=== PATIENT | female | born 2000 | race African-American/Black ===

== ENCOUNTER 2019-01-15 02:19 | Emergency (ER) | payer SELFPAY ==
[~2019-01-15] VITALS: Ht 160 cm; Wt 54.4 kg
--- OUTSIDE RECORDS SUMMARY | 2019-01-15 02:21 | XMS REPORT | Continuity of Care Document ---
Author Author [facility] Interface Address Unknown Phone Unavailable Problems Problem Status Onset Date Classification Date Reported Comments Source Cough 04/18/2018 11/05/2018 [facility] SOB Active 04/18/2018 [facility] Unspecified acute conjunctivitis, right eye 03/14/2018 09/26/2018 [facility] Acute conjunctivitis, right eye 03/09/2018 09/26/2018 [facility] EYE PAIN Active 03/09/2018 [facility] Discharge Diagnosis: Abdominal pain 07/19/2016 07/22/2016 [facility] ABDOMINAL PAIN/VOMITING Active 07/19/2016 [facility] Discharge Diagnosis: Acute nonsuppurative otitis media of left ear 07/04/2016 07/07/2016 [facility] LFT EAR PAIN Active 07/04/2016 [facility] Discharge Diagnosis: DUB 04/06/2016 04/09/2016 [facility] VAGINAL BLEEDING - Active 04/06/2016 [facility] Discharge Diagnosis: Acute asthma exacerbation 11/23/2014 11/25/2014 [facility] Asthma Resolved Problem 11/05/[address] [facility] Unspecified asthma, uncomplicated 11/05/2018 [facility] Medications Medication Details Route Status Patient Instructions Ordering Provider Order Date Source benzonatate 100 MG Oral Capsule [Tessalon Perles] 100 mg=1 cap, PO, TID, X 7 day, # 21 cap, 0 Refill(s) No Longer Active 04/18/2018 [facility] Polymyxin B 00515 UNT/ML / Trimethoprim 1 MG/ML Ophthalmic Solution [Polytrim] 1 drp, RIGHT EYE, Q4H, X 5 day, # 5 mL, 0 Refill(s) No Longer Active 03/09/2018 [facility] Ondansetron 4 MG Disintegrating Tablet [Zofran] 4 mg=1 tab, PO, BID, PRN Nausea and Vomiting, Dissolve tab under tongue, X 5 day, # 10 tab, 0 Refill(s) Active 07/19/2016 [facility] Saline Flush 0.9% 10 mL, Route: IVP, Drug Form: INJ, Dosing Weight 65.455, kg, PRN, PRN Line Flush, Start date: 07/19/16 11:15:00 [employer], Duration: 30 day, Stop date: 08/18/16 11:14:00 CSTNotes: Same as: BD Posiflush Sterile Inactive 07/19/2016 [facility] Ondansetron 4 mg, 2 mL, Route: IVP, Drug form: INJ, ONCE, Dosing Weight 65.455, kg, Priority: STAT, Start date: 07/19/16 11:15:00 [employer], Stop date: 07/19/16 11:15:00 CSTNotes: (Same as: Zofran) MEDICATION WASTE Product Size: 4 mg Product Wasted: ___ mg Inactive 07/19/2016 [facility] Sodium Chloride 0.154 MEQ/ML Injectable Solution 1,000 mL, 2,000 ml/hr, Infuse Over: 30 minutes, Route: IV, 1,000, Drug form: INJ, ONCE, Priority: STAT, Dosing Weight 65.455 kg, Start date: 07/19/16 11:15:00 [employer], Duration: 1 doses or times, Stop date: 07/19/16 11:15:00 [employer] Inactive 07/19/2016 [facility] Ketorolac 30 mg, 1 mL, Route: IVP, Drug form: INJ, ONCE, Dosing Weight 65.455, kg, Priority: STAT, Start date: 07/19/16 11:15:00 [employer], Stop date: 07/19/16 11:15:00 CSTNotes: (Same as:Toradol) IV bolus must be given >15 seconds. Give IM administration slowly and deeply into the muscle. Not for use > 4 days MEDICATION WASTE Product Size: 30 mg Product Wasted: ___ mg Inactive 07/19/2016 [facility] amoxicillin 875 mg oral tablet 875 mg=1 tab, PO, Q12H, X 10 day, # 20 tab, 0 Refill(s) Active 07/04/2016 [facility] Albuterol 0.83 MG/ML Inhalant Solution 2.49 mg=3 mL, INHALATION, Q6H, # 120 ea, 0 Refill(s) Active 11/23/2014 [facility] predniSONE 20 mg oral tablet 40 mg=2 tab, PO, Daily, Take 3 tablets for 60 mg dose, # 10 tab, 0 Refill(s)Special Instructions: Take 3 tablets for 60 mg dose Active 11/23/2014 [facility] albuterol CFC free 90 mcg/inh inhalation aerosol with adapter 2 puff, INHALATION, QID, PRN Wheezing, # 17 gm, 0 Refill(s) Active 11/23/2014 [facility] Prednisone 60 mg, Route: PO, Drug form: TAB, ONCE, Dosing Weight 59.091, kg, Priority: STAT, Start date: 11/23/14 7:33:00, Stop date: 11/23/14 7:33:00 Inactive 11/23/2014 [facility] Albuterol 0.833 MG/ML / Ipratropium Stendal 0.167 MG/ML Inhalant Solution 9 mL, Route: NEB, Dosing Weight 59.091, kg, ONCE, STAT, Start date: 11/23/14 7:31:00, Stop date: 11/23/14 7:31:00 Inactive 11/23/2014 [facility] Allergies, Adverse Reactions, Alerts Substance Category Reaction Severity Reaction type Status Date Reported Comments Source Immunizations Immunization Date Given Site Status Last Updated Comments Source Results Order Name Results Value Reference Range Date Interpretation Comments Source Chest 2 views DX Chest 2 views DX Patient Name: MADHU LIAO : 2000; Age: 17 years Female MR: [id number] Study: Chest 2 views DX Order Time: 04/18/2018 2:18 PM CDT CLINICAL INDICATION: - cough COMPARISON: Chest radiograph on 11/23/2014 FINDINGS: Lines: None. Lungs: The lungs are grossly clear. Mediastinum: The cardiac silhouette is within normal limits of size. Midline trachea. Bones and soft tissues: No acute abnormalities. IMPRESSION: No acute cardiopulmonary abnormalities. SL: [id number] 04/18/2018 - - Read by: Liss Kuhn MD Dictated Date/time: 04/18/18 14:34 Electronically Signed by: Liss Kuhn MD 04/18/18 14:34 FINAL REPORT [facility] CHEM PANEL Lipase Lvl 121 unit/L 73 - 393 07/19/2016 [facility] CHEM PANEL eGFR 112 mL/min/1.73m2 07/19/2016 Result Comment: The eGFR is calculated using the modified Cole equation 0.413 x Height (cm) /Serum Creatinine (mg/dL). [facility] CHEM PANEL Bili Total 0.2 mg/dL 0.2 - 1.3 07/19/2016 [facility] CHEM PANEL ALT 11 unit/L 0 - 65 07/19/2016 [facility] CHEM PANEL Alk Phos 60 unit/L 39 - 136 07/19/2016 [facility] CHEM PANEL AST 10 unit/L 0 - 37 07/19/2016 [facility] CHEM PANEL Albumin Lvl 3.5 g/dL 3.5 - 5.0 07/19/2016 [facility] CHEM PANEL Calcium Lvl 8.4 mg/dL 8.5 - 10.5 07/19/2016 [facility] CHEM PANEL Total Protein 7.6 g/dL 6.4 - 8.4 07/19/2016 [facility] CHEM PANEL CO2 26 meq/L 24 - 32 07/19/2016 [facility] CHEM PANEL Chloride Lvl 107 meq/L 95 - 109 07/19/2016 [facility] CHEM PANEL Potassium Lvl 4.3 meq/L 3.5 - 5.1 07/19/2016 [facility] CHEM PANEL Creatinine Lvl 0.61 mg/dL 0.50 - 1.40 07/19/2016 [facility] CHEM PANEL Sodium Lvl 140 meq/L 135 - 145 07/19/2016 [facility] CHEM PANEL Glucose Lvl 87 mg/dL 70 - 99 07/19/2016 [facility] CHEM PANEL BUN 8 mg/dL 7 - 22 07/19/2016 [facility] CHEM PANEL A/G Ratio 0.9 0.7 - 1.6 07/19/2016 [facility] CHEM PANEL Globulin 4.1 g/dL 2.7 - 4.2 07/19/2016 [facility] CHEM PANEL B/C Ratio 13 6 - 25 07/19/2016 [facility] CHEM PANEL AGAP 11.3 meq/L 10.0 - 20.0 07/19/2016 [facility] HEMATOLOGY MCHC 33.0 g/dL 32.0 - 36.0 07/19/2016 [facility] HEMATOLOGY MCH 26.4 pg 27.0 - 31.0 07/19/2016 [facility] HEMATOLOGY MCV 80.0 fL 80.0 - 98.0 07/19/2016 [facility] HEMATOLOGY MPV 8.7 fL 7.4 - 10.4 07/19/2016 [facility] HEMATOLOGY Platelet 317 K/CMM 133 - 450 07/19/2016 [facility] HEMATOLOGY Hgb 12.7 g/dL 12.0 - 16.0 07/19/2016 [facility] HEMATOLOGY RBC 4.83 M/CMM 4.20 - 5.40 07/19/2016 [facility] HEMATOLOGY WBC 8.5 K/CMM 3.7 - 10.4 07/19/2016 [facility] HEMATOLOGY RDW 13.3 % 11.5 - 14.5 07/19/2016 [facility] HEMATOLOGY Hct 38.6 % 36.0 - 48.0 07/19/2016 [facility] HEMATOLOGY Basophils # 0.1 K/CMM 0.0 - 0.2 07/19/2016 [facility] HEMATOLOGY Eosinophils # 0.1 K/CMM 0.0 - 0.5 07/19/2016 [facility] HEMATOLOGY Monocytes # 0.8 K/CMM 0.0 - 0.8 07/19/2016 [facility] HEMATOLOGY Lymphocytes # 1.9 K/CMM 1.0 - 5.5 07/19/2016 [facility] HEMATOLOGY Basophils 0.7 % 0.0 - 1.0 07/19/2016 [facility] HEMATOLOGY Segs-Bands # 5.6 K/CMM 1.5 - 8.1 07/19/2016 [facility] HEMATOLOGY Lymphocytes 22.5 % 20.0 - 40.0 07/19/2016 [facility] HEMATOLOGY Monocytes 9.4 % 2.0 - 12.0 07/19/2016 [facility] HEMATOLOGY Eosinophils 1.2 % 0.0 - 4.0 07/19/2016 [facility] HEMATOLOGY Segs 66.2 % 45.0 - 75.0 07/19/2016 [facility] URINE AND STOOL UA Mucus Few /LPF None Seen /LPF 07/19/2016 [facility] URINE AND STOOL UA Bacteria Few /HPF None Seen /HPF 07/19/2016 [facility] URINE AND STOOL UA WBC 0-2 /HPF None Seen /HPF 07/19/2016 [facility] URINE AND STOOL UA RBC 6-10 /HPF 0 - 2 07/19/2016 [facility] URINE AND STOOL UA Spec Grav >=1.030 *ABN* (07/19/16 11:33 AM) <=1.030 07/19/2016 [facility] URINE AND STOOL UA Protein Negative (07/19/16 11:33 AM) Negative 07/19/2016 [facility] URINE AND STOOL UA Color Yellow *NA* (07/19/16 11:33 AM) Yellow 07/19/2016 [facility] URINE AND STOOL UA Turbidity Clear (07/19/16 11:33 AM) Clear 07/19/2016 [facility] URINE AND STOOL UA Leuk Est Negative (07/19/16 11:33 AM) Negative 07/19/2016 [facility] URINE AND STOOL UA Sq Epi Few /LPF Few /LPF 07/19/2016 [facility] URINE AND STOOL UA Nitrite Negative (07/19/16 11:33 AM) Negative 07/19/2016 [facility] URINE AND STOOL UA Ketones Negative *NA* (07/19/16 11:33 AM) Negative 07/19/2016 [facility] URINE AND STOOL UA pH 5.5 5.0 - 8.0 07/19/2016 [facility] URINE AND STOOL UA Glucose Negative (07/19/16 11:33 AM) Negative 07/19/2016 [facility] URINE AND STOOL UA Blood Large *ABN* (07/19/16 11:33 AM) Negative 07/19/2016 [facility] URINE AND STOOL UA Urobilinogen 0.2 EU/dL 0.1 - 1.0 07/19/2016 [facility] URINE AND STOOL UA Bili Negative *NA* (07/19/16 11:33 AM) Negative 07/19/2016 [facility] URINE CHEM U Preg Negative (07/19/16 11:33 AM) Negative 07/19/2016 [facility] URINE CHEM U Preg Negative (04/06/16 8:07 PM) Negative 04/07/2016 [facility] Vital Signs Vital Sign Value Date Comments Source Respitory Rate 15 04/18/2018 [facility] Systolic (mm Hg) 106 04/18/2018 [facility] Diastolic (mm Hg) 68 04/18/2018 [facility] Temperature Oral (F) 99.2 F 04/18/2018 [facility] Heart Rate 59 04/18/2018 [facility] Weight 57.636 04/18/2018 [facility] Systolic (mm Hg) 114 04/18/2018 [facility] Diastolic (mm Hg) 61 04/18/2018 [facility] Temperature Oral (F) 99.0 F 04/18/2018 [facility] Heart Rate 84 04/18/2018 [facility] Respitory Rate 20 04/18/2018 [facility] Heart Rate 63 03/09/2018 [facility] Systolic (mm Hg) 127 03/09/2018 [facility] Diastolic (mm Hg) 77 03/09/2018 [facility] Height 157.48 cm 03/09/2018 [facility] Temperature Oral (F) 98.2 F 03/09/2018 [facility] Respitory Rate 18 03/09/2018 [facility] Weight 59.205 03/09/2018 [facility] BMI Calculated 23.87 03/09/2018 [facility] Heart Rate 87 07/19/2016 [facility] Systolic (mm Hg) 115 07/19/2016 [facility] Diastolic (mm Hg) 78 07/19/2016 [facility] Respitory Rate 18 07/19/2016 [facility] Temperature Oral (F) 98.6 F 07/19/2016 [facility] Temperature Oral (F) 98.6 F 07/19/2016 [facility] Height 165.1 cm 07/19/2016 [facility] Weight 65.455 07/19/2016 [facility] BMI Calculated 24.01 07/19/2016 [facility] Respitory Rate 18 07/19/2016 [facility] Heart Rate 86 07/19/2016 [facility] Systolic (mm Hg) 109 07/19/2016 [facility] Diastolic (mm Hg) 74 07/19/2016 [facility] Weight 63.636 07/04/2016 [facility] Heart Rate 89 07/04/2016 [facility] Systolic (mm Hg) 119 07/04/2016 [facility] Diastolic (mm Hg) 75 07/04/2016 [facility] Respitory Rate 16 07/04/2016 [facility] Temperature Oral (F) 98.5 F 07/04/2016 [facility] BMI Calculated 26.51 07/04/2016 [facility] Height 154.94 cm 07/04/2016 [facility] Temperature Oral (F) 98.4 F 04/07/2016 [facility] Systolic (mm Hg) 108 04/07/2016 [facility] Diastolic (mm Hg) 71 04/07/2016 [facility] Respitory Rate 20 04/07/2016 [facility] Heart Rate 87 04/07/2016 [facility] Weight 62.273 04/07/2016 [facility] BMI Calculated 24.32 04/07/2016 [facility] Height 160.02 cm 04/07/2016 [facility] Temperature Oral (F) 98.7 F 04/07/2016 [facility] Respitory Rate 18 04/07/2016 [facility] Heart Rate 75 04/07/2016 [facility] Systolic (mm Hg) 123 04/07/2016 [facility] Diastolic (mm Hg) 74 04/07/2016 [facility] Heart Rate 76 11/23/2014 [facility] Temperature Oral (F) 98.1 F 11/23/2014 [facility] Systolic (mm Hg) 101 11/23/2014 [facility] Diastolic (mm Hg) 50 11/23/2014 [facility] Respitory Rate 20 11/23/2014 [facility] Weight 59.091 11/23/2014 [facility] Respitory Rate 22 11/23/2014 [facility] Heart Rate 96 11/23/2014 [facility] Systolic (mm Hg) 117 11/23/2014 [facility] Diastolic (mm Hg) 77 11/23/2014 [facility] Temperature Oral (F) 98.5 F 11/23/2014 [facility] Encounters Location Location Details Encounter Type Encounter Number Reason For Visit Attending Provider ADM Date DC Date Status Source [facility] [id number] Loi Acosta 11/23/2014 11/23/2014 [facility] [id number] Pa Woods 04/07/2016 04/07/2016 [facility] [id number] Marino Padgett 07/04/2016 07/04/2016 [facility] [id number] Andrew Farias 07/19/2016 07/19/2016 [facility] [id number] Laron Quijano 03/09/2018 03/09/2018 [facility] [id number] Bebe Ludwig 04/18/2018 04/18/2018 [facility] Procedures Procedure Code Date Perfomer Comments Source
--- OUTSIDE RECORDS SUMMARY | 2019-01-15 02:22 | XMS REPORT | Summary of Care ---
Author Author [facility] Organization [facility] Address Unknown Phone Unavailable Encounter RICHI Alvarez(ANITA) [id number] Date(s): 07/19/16 - 07/19/16 [facility] [address] [place] [address]- [phone] Discharge Diagnosis: Abdominal pain Discharge Disposition: Home or Self Care Attending Physician: Andrew Farias MD Vital Signs Most recent to 1 2 oldest [Reference Range]: Height 165.1 cm (07/19/16 10:40 AM) Temperature Oral 98.6 DegF 98.6 DegF [96.8-99.7 DegF] (07/19/16 1:43 PM) (07/19/16 10:40 AM) Blood Pressure 115/78 mmHg 109/74 mmHg [90-138/45-84 mmHg] (07/19/16 1:43 PM) (07/19/16 10:40 AM) Respiratory Rate 18 BRMIN 18 BRMIN [14-20 BRMIN] (07/19/16 1:43 PM) (07/19/16 10:40 AM) Peripheral Pulse 87 bpm 86 bpm Rate [55-90 bpm] (07/19/16 1:43 PM) (07/19/16 10:40 AM) Weight 65.455 kg (07/19/16 10:40 AM) Body Mass Index 24.01 m2 (07/19/16 10:40 AM) Problem List Condition Effective Dates Status Health Status Informant Asthma(Confirmed) Resolved Allergies, Adverse Reactions, Alerts Substance Reaction Severity Status NKDA Active Medications ketOROLAC 30 mg, 1 mL, Route: IVP, Drug form: INJ, ONCE, Dosing Weight 65.455, kg, Priorit y: STAT, Start date: 07/19/16 11:15:00 [employer], Stop date: 07/19/16 11:15:00 [employer] Notes: (Same as:Toradol) IV bolus must be given >15 seconds. Give IM administration slowly and deeply into the muscle.Not for use > 4 days MEDICATION WASTE Product Size: 30 mgProduct Wasted: ___ mg Start Date: 07/19/16 Stop Date: 07/19/16 Status: Completed ondansetron 4 mg, 2 mL, Route: IVP, Drug form: INJ, ONCE, Dosing Weight 65.455, kg, Priority : STAT, Start date: 07/19/16 11:15:00 [employer], Stop date: 07/19/16 11:15:00 [employer] Notes: (Same as: Zofran) MEDICATION WASTE Product Size: 4 mgProduct Was little: ___ mg Start Date: 07/19/16 Stop Date: 07/19/16 Status: Completed Saline Flush 0.9% 10 mL, Route: IVP, Drug Form: INJ, Dosing Weight 65.455, kg, PRN, PRN Line Flush , Start date: 07/19/16 11:15:00 [employer], Duration: 30 day, Stop date: 08/18/16 11:14 :00 [employer] Notes: Same as: BD Posiflush Sterile Start Date: 07/19/16 Stop Date: 07/19/16 Status: Discontinued Sodium Chloride 0.9% (Bolus) IV 1,000 mL, 2,000 ml/hr, Infuse Over: 30 minutes, Route: IV, 1,000, Drug form: INJ , ONCE, Priority: STAT, Dosing Weight 65.455 kg, Start date: 07/19/16 11:15:[address], Duration: 1 doses or times, Stop date: 07/19/16 11:15:00 [employer] Start Date: 07/19/16 Stop Date: 07/19/16 Status: Completed Zofran ODT 4 mg oral tablet, disintegrating 4 mg=1 tab, PO, BID, PRN Nausea and Vomiting, Dissolve tab under tongue, X 5 day , # 10 tab, 0 Refill(s) Start Date: 07/19/16 Stop Date: 07/24/16 Status: Ordered Results ELECTROLYTES Most recent to 1 oldest [Reference Range]: Sodium Lvl [135-145 140 mEq/L mEq/L] (07/19/16 11:33 AM) Potassium Lvl 4.3 mEq/L [3.5-5.1 mEq/L] (07/19/16 11:33 AM) Chloride Lvl [95-109 107 mEq/L mEq/L] (07/19/16 11:33 AM) CO2 [24-32 mEq/L] 26 mEq/L (07/19/16 11:33 AM) AGAP [10.0-20.0 11.3 mEq/L mEq/L] (07/19/16 11: AM) CHEM PANEL Most recent to 1 oldest [Reference Range]: Creatinine Lvl 0.61 mg/dL [0.50-1.40 mg/dL] (07/19/16 11:33 AM) eGFR 112 mL/min/1.73m2 1 *NA* (07/19/16: AM) BUN [7-22 mg/dL] 8 mg/dL (07/19/16 11:33 AM) B/C Ratio [6-25] 13 (07/19/16 11: AM) Glucose Lvl [70-99 87 mg/dL mg/dL] (07/19/16 11: AM) Total Protein 7.6 g/dL [6.4-8.4 g/dL] (07/19/16 11:33 AM) Albumin Lvl [3.5-5.0 3.5 g/dL g/dL] (07/19/16 11:33 AM) Globulin [2.7-4.2 4.1 g/dL g/dL] (07/19/16 11: AM) A/G Ratio [0.7-1.6] 0.9 (07/19/16 11: AM) Calcium Lvl 8.4 mg/dL [8.5-10.5 mg/dL] *LOW* (07/19/16 11:33 AM) ALT [0-65 unit/L] 11 unit/L (07/19/16 11:33 AM) AST [0-37 unit/L] 10 unit/L (07/19/16 11:33 AM) Alk Phos [39-136 60 unit/L unit/L] (07/19/16 11:33 AM) Bili Total [0.2-1.3 0.2 mg/dL mg/dL] (07/19/16 11:33 AM) Lipase Lvl [73-393 121 unit/L unit/L] (07/19/16 11:33 AM) 1Result Comment: The eGFR is calculated using the modified Cole equation 0.413 x Height (cm) /Serum Creatinine (mg/dL). URINE CHEM Most recent to 1 oldest [Reference Range]: U Preg [Negative] Negative (07/19/16 11:33 AM) URINE AND STOOL Most recent to 1 oldest [Reference Range]: UA Turbidity [Clear] Clear (07/19/16 11:33 AM) UA Color [Yellow] Yellow *NA* (07/19/16 11:33 AM) UA pH [5.0-8.0] 5.5 (07/19/16 11:33 AM) UA Spec Grav >=1.030 [<=1.030] *ABN* (07/19/16 11:33 AM) UA Glucose Negative [Negative] (07/19/16 11:33 AM) UA Blood [Negative] Large *ABN* (07/19/16 11:33 AM) UA Ketones Negative [Negative] *NA* (07/19/16 11:33 AM) UA Protein Negative [Negative] (07/19/16 11:33 AM) UA Urobilinogen 0.2 EU/dL [0.1-1.0 EU/dL] (07/19/16 11:33 AM) UA Bili [Negative] Negative *NA* (07/19/16 11:33 AM) UA Leuk Est Negative [Negative] (07/19/16 11:33 AM) UA Nitrite Negative [Negative] (07/19/16 11:33 AM) UA WBC [None Seen 0-2 /HPF /HPF] (07/19/16 11:33 AM) UA RBC [0-2 /HPF] 6-10 /HPF *ABN* (07/19/16 11:33 AM) UA Bacteria [None Few /HPF Seen /HPF] (07/19/16 11:33 AM) UA Sq Epi [Few /LPF] Few /LPF (07/19/16 11:33 AM) UA Mucus [None Seen Few /LPF /LPF] (07/19/16 11:33 AM) HEMATOLOGY Most recent to 1 oldest [Reference Range]: WBC [3.7-10.4 K/CMM] 8.5 K/CMM (07/19/16 11:33 AM) RBC [4.20-5.40 4.83 M/CMM M/CMM] (07/19/16 11:33 AM) Hgb [12.0-16.0 g/dL] 12.7 g/dL (07/19/16 11: AM) Hct [36.0-48.0 %] 38.6 % (07/19/16: AM) MCV [80.0-98.0 fL] 80.0 fL (07/19/16 11: AM) MCH [27.0-31.0 pg] 26.4 pg *LOW* (07/19/16: AM) MCHC [32.0-36.0 33.0 g/dL g/dL] (07/19/16 11:33 AM) RDW [11.5-14.5 %] 13.3 % (07/19/16: AM) Platelet [133-450 317 K/CMM K/CMM] (07/19/16 11:33 AM) MPV [7.4-10.4 fL] 8.7 fL (07/19/16 11:33 AM) Segs [45.0-75.0 %] 66.2 % (07/19/16 11:33 AM) Lymphocytes 22.5 % [20.0-40.0 %] (07/19/16 11:33 AM) Monocytes [2.0-12.0 9.4 % %] (07/19/16 11:33 AM) Eosinophils [0.0-4.0 1.2 % %] (07/19/16 11:33 AM) Basophils [0.0-1.0 0.7 % %] (07/19/16 11:33 AM) Segs-Bands # 5.6 K/CMM [1.5-8.1 K/CMM] (07/19/16 11:33 AM) Lymphocytes # 1.9 K/CMM [1.0-5.5 K/CMM] (07/19/16 11:33 AM) Monocytes # [0.0-0.8 0.8 K/CMM K/CMM] (07/19/16 11:33 AM) Eosinophils # 0.1 K/CMM [0.0-0.5 K/CMM] (07/19/16 11:33 AM) Basophils # [0.0-0.2 0.1 K/CMM K/CMM] (07/19/16 11:33 AM) Immunizations No data available for this section Procedures No data available for this section Social History Social History Type Response Smoking Status Never smoker; Exposure to Tobacco Smoke None; Cigarette Smoking Last 365 Days No; Reg Smoking Cessation Counseling No Assessment and Plan No data available for this section
--- OUTSIDE RECORDS SUMMARY | 2019-01-15 02:22 | XMS REPORT | Summary of Care ---
Author Organization Unknown Address Unknown Phone Unavailable Encounter RICHI Alvarez(ANITA) [id number] Date(s): 11/23/14 - 11/23/14 [facility] [address] [place] [address]- Discharge Diagnosis: Acute asthma exacerbation Discharge Disposition: Home Physician Attending: Loi Acosta MD Vital Signs Most recent to 1 2 oldest [Reference Range]: Temperature Oral 98.1 DegF 98.5 DegF [96.8-99.7 DegF] (11/23/14 9:34 AM) (11/23/14 7:13 AM) Blood Pressure 101/50 mmHg 117/77 mmHg [90-138/45-84 mmHg] (11/23/14 9:34 AM) (11/23/14 7:13 AM) Respiratory Rate 20 BRMIN 22 BRMIN [14-20 BRMIN] (11/23/14 9:34 AM) *HI* (11/23/14 7:13 AM) Peripheral Pulse 76 bpm 96 bpm Rate [55-90 bpm] (11/23/14 9:34 AM) *HI* (11/23/14 7:13 AM) Weight 59.091 kg (11/23/14 7:13 AM) Problem List Condition Effective Dates Status Health Status Informant Asthma(Confirmed) Resolved Allergies, Adverse Reactions, Alerts Substance Reaction Severity Status NKDA Active Medications albuterol 0.083% inhalation solution 2.49 mg=3 mL, INHALATION, Q6H, # 120 ea, 0 Refill(s) Start Date: 11/23/14 Status: Ordered albuterol CFC free 90 mcg/inh inhalation aerosol with adapter 2 puff, INHALATION, QID, PRN Wheezing, # 17 gm, 0 Refill(s) Start Date: 11/23/14 Status: Ordered albuterol-ipratropium 2.5-0.5 mg inhalation solution 9 mL, Route: NEB, Dosing Weight 59.091, kg, ONCE, STAT, Start date: 11/23/14 7:3 1:00, Stop date: 11/23/14 7:31:00 Start Date: 11/23/14 Stop Date: 11/23/14 Status: Completed predniSONE 60 mg, Route: PO, Drug form: TAB, ONCE, Dosing Weight 59.091, kg, Priority: STAT , Start date: 11/23/14 7:33:00, Stop date: 11/23/14 7:33:00 Start Date: 11/23/14 Stop Date: 11/23/14 Status: Completed predniSONE 20 mg oral tablet 40 mg=2 tab, PO, Daily, Take 3 tablets for 60 mg dose, # 10 tab, 0 Refill(s) Special Instructions: Take 3 tablets for 60 mg dose Start Date: 11/23/14 Stop Date: 11/28/14 Status: Ordered Results No data available for this section Immunizations No data available for this section Procedures No data available for this section Social History Social History Type Response Smoking Status Never smoker; Exposure to Tobacco Smoke None; Cigarette Smoking Last 365 Days No; Reg Smoking Cessation Counseling No Assessment and Plan No data available for this section
--- OUTSIDE RECORDS SUMMARY | 2019-01-15 02:22 | XMS REPORT | Summary of Care ---
Author Author [facility] Organization [facility] Address Unknown Phone Unavailable Encounter RICHI Alvarez(ANITA) [id number] Date(s): 07/04/16 - 07/04/16 [facility] [address] [place] [address]- Discharge Diagnosis: Acute nonsuppurative otitis media of left ear Discharge Disposition: Home or Self Care Attending Physician: Marino Padgett MD Vital Signs Most recent to 1 oldest [Reference Range]: Height 154.94 cm (07/04/16 4:35 AM) Temperature Oral 98.5 DegF [96.8-99.7 DegF] (07/04/16 4:35 AM) Blood Pressure 119/75 mmHg [90-138/45-84 mmHg] (07/04/16 4:35 AM) Respiratory Rate 16 BRMIN [14-20 BRMIN] (07/04/16 4:35 AM) Peripheral Pulse 89 bpm Rate [55-90 bpm] (07/04/16 4:35 AM) Weight 63.636 kg (07/04/16 4:35 AM) Body Mass Index 26.51 m2 (07/04/16 4:35 AM) Problem List Condition Effective Dates Status Health Status Informant Asthma(Confirmed) Resolved Allergies, Adverse Reactions, Alerts Substance Reaction Severity Status NKDA Active Medications amoxicillin 875 mg oral tablet 875 mg=1 tab, PO, Q12H, X 10 day, # 20 tab, 0 Refill(s) Start Date: 07/04/16 Stop Date: 07/14/16 Status: Ordered Results No data available for [...]
--- OUTSIDE RECORDS SUMMARY | 2019-01-15 02:22 | XMS REPORT | Summary of Care ---
Author Author [facility] Organization [facility] Address Unknown Phone Unavailable Encounter HQ Kim(FIN) [id number] Date(s): 03/09/18 - 03/09/18 [facility] [address] [place] [address]- Encounter Diagnosis Acute conjunctivitis, right eye (Discharge Diagnosis) - 03/09/18 Discharge Disposition: Home or Self Care Attending Physician: Laron Quijano MD Vital Signs Most recent to 1 oldest [Reference Range]: Height 157.48 cm (03/09/18 7:36 AM) Temperature Oral 98.2 DegF [96.4-99.1 DegF] (03/09/18 7:36 AM) Blood Pressure 127/77 mmHg [90-140/60-90 mmHg] (03/09/18 7:36 AM) Respiratory Rate 18 BRMIN [14-20 BRMIN] (03/09/18 7:36 AM) Peripheral Pulse 63 bpm Rate [60-100 bpm] (03/09/18 7:36 AM) Weight 59.205 kg (03/09/18 7:36 AM) Body Mass Index 23.87 m2 (03/09/18 7:36 AM) Problem List Condition Effective Dates Status Health Status Informant Asthma(Confirmed) Resolved Allergies, Adverse Reactions, Alerts Substance Reaction Severity Status NKDA Active Medications Polytrim ophthalmic solution 1 drp, RIGHT EYE, Q4H, X 5 day, # 5 mL, 0 Refill(s) Start Date: 03/09/18 Stop Date: 03/14/18 Status: Ordered Results No data available for this section Immunizations No data available for this section Procedures No data available for this section Social History Social History Type Response Smoking Status Never smoker; Exposure to Tobacco Smoke None; Cigarette Smoking Last 365 Days No; Reg Smoking Cessation Counseling No entered on: 03/09/18 Assessment and Plan No data available for this section
--- OUTSIDE RECORDS SUMMARY | 2019-01-15 02:22 | XMS REPORT | Summary of Care ---
Author Author [facility] Organization [facility] Address Unknown Phone Unavailable Encounter HQ Kim(FIN) [id number] Date(s): 04/18/18 - 04/18/18 [address] [place] [address]- [phone] Encounter Diagnosis Cough (Discharge Diagnosis) - 04/18/18 Cough (Final) - 04/23/18 Unspecified asthma, uncomplicated (Final) - Discharge Disposition: Home or Self Care Attending Physician: Bebe Ludwig MD Vital Signs Most recent to 1 2 oldest [Reference Range]: Temperature Oral 99.2 DegF 99.0 DegF [96.4-99.1 DegF] *HI* (04/18/18 1:54 PM) (04/18/18 3:06 PM) Blood Pressure 106/68 mmHg 114/61 mmHg [90-140/60-90 mmHg] (04/18/18 3:06 PM) (04/18/18 1:54 PM) Respiratory Rate 15 BRMIN 20 BRMIN [14-20 BRMIN] (04/18/18 3:06 PM) (04/18/18 1:54 PM) Peripheral Pulse 59 bpm 84 bpm Rate [60-100 bpm] *LOW* (04/18/18 1:54 PM) (04/18/18 3:06 PM) Weight 57.636 kg (04/18/18 1:54 PM) Problem List Condition Effective Dates Status Health Status Informant Asthma(Confirmed) Resolved Allergies, Adverse Reactions, Alerts Substance Reaction Severity Status NKDA Active Medications Tessalon Perles 100 mg oral capsule 100 mg=1 cap, PO, TID, X 7 day, # 21 cap, 0 Refill(s) Start Date: 04/18/18 Stop Date: 04/25/18 Status: Completed Results No data available for this section Immunizations No data available for this section Procedures No data available for this section Social History Social History Type Response Smoking Status Never smoker; Exposure to Tobacco Smoke None; Cigarette Smoking Last 365 Days No; Reg Smoking Cessation Counseling No entered on: 04/18/18 Assessment and Plan No data available for this section
--- OUTSIDE RECORDS SUMMARY | 2019-01-15 02:22 | XMS REPORT | Summary of Care ---
Author Author [facility] Organization [facility] Address Unknown Phone Unavailable Encounter RICHI Alvarez(ANITA) [id number] Date(s): 04/06/16 - 04/06/16 [facility] [address] [place] [address]- [phone] Discharge Diagnosis: DUB (dysfunctional uterine bleeding) Discharge Disposition: Home or Self Care Attending Physician: Pa Woods MD Vital Signs Most recent to 1 2 oldest [Reference Range]: Height 160.02 cm (04/06/16 7:50 PM) Temperature Oral 98.4 DegF 98.7 DegF [96.8-99.7 DegF] (04/06/16 9:37 PM) (04/06/16 7:50 PM) Blood Pressure 108/71 mmHg 123/74 mmHg [90-138/45-84 mmHg] (04/06/16 9:37 PM) (04/06/16 7:50 PM) Respiratory Rate 20 BRMIN 18 BRMIN [14-20 BRMIN] (04/06/16 9:37 PM) (04/06/16 7:50 PM) Peripheral Pulse 87 bpm 75 bpm Rate [55-90 bpm] (04/06/16 9:37 PM) (04/06/16 7:50 PM) Weight 62.273 kg (04/06/16 7:50 PM) Body Mass Index 24.32 m2 (04/06/16 7:50 PM) Problem List Condition Effective Dates Status Health Status Informant Asthma(Confirmed) Resolved Allergies, Adverse Reactions, Alerts Substance Reaction Severity Status NKDA Active Medications No data available for this section Results URINE CHEM Most recent to 1 oldest [Reference Range]: U Preg [Negative] Negative (04/06/16 8:07 PM) Immunizations No data available for this section Procedures No data available for this section Social History Social History Type Response Smoking Status Never smoker; Ready to change: No; Concerns about tobacco use in household: No; Exposure to Tobacco Smoke None; Cigarette Smoking Last 365 Days No; Reg Smoking Cessation Counseling No Assessment and Plan No data available for this section
--- OUTSIDE RECORDS SUMMARY | 2019-01-15 02:22 | XMS REPORT | Summary of Care ---
Author Author [facility] Organization [facility] Address Unknown Phone Unavailable Encounter HQ Kim(FIN) [id number] Date(s): 03/09/18 - 03/09/18 [id number] [place] [address]- [phone] Encounter Diagnosis Acute conjunctivitis, right eye (Discharge Diagnosis) - 03/09/18 Unspecified acute conjunctivitis, right eye (Final) - 03/13/18 Discharge Disposition: Home or Self Care Attending [...] Start Date: 03/09/18 Stop Date: 03/14/18 Status: Completed Results No data available for [...]
== END 2019-01-15 02:36 | disposition left against medical advice (07) ==
LOC: ER 02:19
DX: L08.82 Omphalitis not of newborn (principal)